=== PATIENT | male | born 2005 | race African-American/Black ===

== ENCOUNTER 2025-01-13 12:27 | Emergency (ER) | payer MEDICAID, SELFPAY ==
[2025-01-13 12:38] VITALS: BP 130/74; PULSE 70; O2SAT 100; BMI 24.1
--- NOTE | 2025-01-13 12:44 | ED_ITS ---
HPI - Psych General Chief Complaint: Psychiatric Symptoms Stated Complaint: SI Source: patient and EMS Mode of arrival: EMS Limitations: no limitations History of Present Illness ED Provider: KIKI Pop HPI Narrative: Chief Complaint: ?I feel like I might not live to next year.? History of Present Illness: Patient reports passive thoughts about not wanting to live through the next year. Yesterday she disclosed these feelings to a professor, who directed her to [facility]. She was evaluated by the [facility] crisis team the same day and medically cleared with instructions for follow-up. Today [facility] called to check on her and, although she reports no significant change, she was referred to the ED for further evaluation. She denies a specific plan or intent for self-harm. She describes rapid mood shifts?being happy one moment and feeling detached or ?dissociated? minutes later. Patient specifically describes that she could be in a happy mood, jumping around, and then within two or three minutes feels completely dissociated from what's going on. She denies prior psychiatric diagnosis (e.g., bipolar disorder, schizophrenia). She is unaware of any family history of psychiatric illness. She denies visual/auditory hallucinations and denies homicidal ideation except in self-defense.346 Related Data Home Medications ?Medication ?Instructions ?Recorded ?Confirmed No Known Home Meds 01/13/25 01/13/25 Allergies Allergy/AdvReac Type Severity Reaction Status Date / Time No Known Allergies Allergy Verified 01/13/25 12:41 Review of Systems 2 Review of Systems: Psychiatric: Positive for passive suicidal thoughts, mood lability, and episodes of dissociation. Negative for hallucinations and homicidal ideation. No other systems reviewed or discussed. Family History: Patient is unsure of family psychiatric history; no known concerns reported. Yes all other systems are reviewed and are negative [facility] Past Medical History Attestation statement: The following information was validated with the patient. Source: old records reviewed and nursing notes reviewed Social History Social History Advance Directives: No Advance Directives Information Provided: Yes Do you have a plan to hurt others: No Plan Physical Exam 2 Exam: Exam: Appearance: Alert.? Oriented X3.? No acute distress.? Head: Normocephalic, atraumatic, no step-offs or deformities Eyes: Pupils equal, round and reactive to light.? ENT: Pharynx normal.? Neck: Normal inspection.? Neck supple.? CVS: Normal heart rate and rhythm.? Pulses normal.? Respiratory: No respiratory distress.? Breath sounds normal.? Abdomen: Soft and nontender.? Skin: Skin warm and dry.? Normal skin color.? Normal skin turgor.? Extremities: No lower extremity edema.? No calf ttp. 5/5 strength to bilateral upper and lower extremities Back: No midline tenderness, no C-spine tenderness, full range of motion, no CVA tenderness bilaterally Neuro: Oriented X 3.? No motor deficit.? No sensory deficit. CN 2-12 intact Vital Signs: Vital Signs: Last Vital Signs Temp 98.0 F 01/14/25 06:25 Pulse 63 01/14/25 06:25 Resp 16 01/14/25 06:25 BP 108/58 L 01/14/25 06:25 Pulse Ox 100 01/14/25 06:25 O2 Del Method Room Air 01/14/25 06:25 BMI result Body Mass Index 24.1 vss Course Reevaluation(s) Reevaluation #1: CBC with leukopenia and no anemia. This is possibly baseline however, no labs to compare with. Chemistry no acute findings needing intervention. UA without infection. Urine toxicology positive for marijuana negative for ethanol. At this time patient to be placed into observation to allow more time to be seen by the care team. Time: 13:48 Reevaluation #2: Patient will continue in physician observation seen with the care team but they are awaiting collateral from the patient's school Time: 19:42 Reevaluation #3: Seen by crisis patient is clear for discharge. No SI at this time, this end the physician observation status 01/14/2025 09:00 Medical Decision Making Medical Decision Making MDM Narrative: Patient presents with passive suicidal ideation without plan or intent, mood lability, and episodes of dissociation. Requires medical clearance and psychiatric evaluation. Physical exam benign Problem #1: Passive suicidal ideation / mood lability Assessment: Patient endorses vague thoughts of not wanting to live but denies active plan or intent. No prior psychiatric history. Needs full psychiatric assessment once medically cleared. Plan: * Obtain basic lab work, urine analysis, drug screen, and ethanol level for medical clearance. * Crisis team to evaluate patient in ED once clearance obtained * Ensure safe environment while awaiting evaluation. Differential Diagnosis Differential Diagnoses: The differential diagnosis associated with the presentation includes Differential Diagnosis * Major depressive disorder * Adjustment disorder with depressed mood * Bipolar disorder (first episode) * Substance-induced mood disorder * Dissociative disorder * Personality disorder (e.g., borderline personality traits) * Psychotic disorder (prodromal phase) * Medical causes (e.g., thyroid dysfunction, neurologic disorder) * PTSD/trauma-related disorder Admission/Observation Consideration of admission/observation: Escalation of care including admission/observation considered (possible ) Consult Healthcare Provider Management of the patient was discussed with: Behavioral Health Provider Lab Data MDM Lab Attestation statement: I reviewed the patient's lab results. 01/13/25 13:10 01/13/25 13:10 Labs: Lab Results 01/13/25 01/13/25 Range/Units 13:10 13:21 WBC 3.6 L (4.8-10.8) X10*3/uL RBC 4.20 L (4.60-5.80) X10*6/uL Hgb 13.3 L (14.0-18.0) g/dl Hct 39.3 L (42.0-52.0) % MCV 93.6 (80.0-98.0) fL MCH 31.7 (27.0-33.0) pg MCHC 33.8 (31.0-36.0) g/dl RDW 12.8 (11.0-16.0) % Plt Count 173 (160-400) X10*3/uL MPV 10.0 (9.4-12.4) fL Immature Gran % (Auto) 0.3 (0.0-0.4) % Neut % (Auto) 45.4 (45-73) % Lymph % (Auto) 40.6 H (20-40) % [place] % (Auto) 8.8 (2-11) % Eos % (Auto) 4.1 H (0-4) % Baso % (Auto) 0.8 (0-2) % Lymph # (Auto) 1.5 (1.2-4.9) X10*3/uL [place] # (Auto) 0.3 (0.1-1.2) X10*3/uL Eos # (Auto) 0.2 (0.0-0.4) X10*3/uL Baso # (Auto) 0.0 (0.0-0.2) X10*3/uL Abs Immat Gran (auto) 0.01 (0.00-0.03) X10*3/uL Absolute Neuts (auto) 1.6 L (2.0-8.3) x10*3/uL Absolute Nucleated RBC 0.000 (0.0-0.012) X10*3/uL Nucleated RBC % (auto) 0.0 (0.0-0.2) /100WBC Sodium 141 (135-145) mmol/L Potassium 3.9 (3.3-5.1) mmol/L Chloride 106 (96-108) mmol/L Carbon Dioxide 29 (22-29) mmol/L Anion Gap 10 L (12-20) BUN 14 (9-16) mg/dL Creatinine 1.09 (0.5-1.4) mg/dL Estim Creat Clear Calc 93.2 Estimated GFR > 60 Random Glucose 82 (60-115) mg/dL Calcium 9.3 (8.4-10.2) mg/dL Magnesium 2.1 (1.6-2.6) mg/dL Total Bilirubin 0.5 (0.0-1.0) mg/dL AST 23 (5-37) U/L ALT 18 (0-40) U/L Alkaline Phosphatase 59 (39-117) U/L Total Protein 7.7 (6.5-8.0) g/dL Albumin 4.7 (3.5-5.0) g/dL Urine Color Yellow Urine Appearance Clear Urine pH 6.0 (5.0-9.0) Ur Specific [place] >= 1.030 H (1.005-1.025) Urine Protein Negative (Neg-Trace) mg/dL Urine Glucose (UA) Negative (Negative) mg/dL Urine Ketones Trace (Negative) mg/dL Urine Blood Negative (Negative) Urine Nitrite Negative (Negative) Ur Leukocyte Esterase Negative (Negative) Urine Opiates Screen Not Detected (Not Detect) Ur Buprenorphine Scrn Not Detected (Not Detect) ng/mL Ur Oxycodone Screen Not Detected (Not Detect) ng/mL Urine Methadone Screen Not Detected (Not Detect) ng/mL Urine Fentanyl Screen Not Detected (Not Detect) Ur Barbiturates Screen Not Detected (Not Detect) Ur Phencyclidine Scrn Not Detected (Not Detect) Ur Amphetamines Screen Not Detected (Not Detect) U Benzodiazepines Scrn Not Detected (Not Detect) Urine Cocaine Screen Not Detected (Not Detect) U Marijuana (THC) Screen POSITIVE H (Not Detect) Ethyl Alcohol < 10 mg/dL External Record Review n/a Chronic Conditions Denies Social Determinants Patient?s care significantly limited by Social Determinants of Health including: Other Social Determinant of Health Discharge Plan Discharge Clinical Impression: Depression, Suicidal ideation Prescriptions: No Action No Known Home Meds Interventions: [place]-Suicide Risk Severity Scale Last Done: 01/13/25 12:42 Print Language: Yoruba
[2025-01-13 13:00] VITALS: BP 118/70; PULSE 66; RESP 14; TEMP 36.3; O2SAT 100
[2025-01-13 13:16] LABS: MANUAL DIFF FLAG NO
[2025-01-13 13:17] LABS: Hematocrit 39.3 % (42.0-52.0); Hemoglobin 13.3 g/dl (14.0-18.0); Imm Gran Abs Auto 0.01 X10*3/uL (0.00-0.03); Imm Gran Pct Auto 0.3 % (0.0-0.4); Lymphocytes Absolute Auto 1.5 X10*3/uL (1.2-4.9); Mean Corpuscular HGB Conc 33.8 g/dl (31.0-36.0); Mean Corpuscular Hemoglobin 31.7 pg (27.0-33.0); Mean Corpuscular Volume 93.6 fL (80.0-98.0); NRBC Abs Auto 0.000 X10*3/uL (0.0-0.012); NRBC Pct Auto 0.0 /100WBC (0.0-0.2); Platelet Count 173 X10*3/uL (160-400); Red Blood Count 4.20 X10*6/uL (4.60-5.80); White Blood Count 3.6 X10*3/uL (4.8-10.8)
[2025-01-13 13:31] LABS: Appearance Urine Clear; Glucose Urine UA Negative (Negative); PH 6.0 (5.0-9.0); Specific Gravity - Urine >= 1.030 (1.005-1.025)
[2025-01-13 13:33] LABS: Alanine Aminotransferase 18 U/L (0-40); Albumin Level 4.7 g/dL (3.5-5.0); Alkaline Phosphatase 59 U/L (39-117); Anion Gap 10 (12-20); Aspartate Amino Transferase 23 U/L (5-37); Blood Urea Nitrogen 14 mg/dL (9-16); Calcium 9.3 mg/dL (8.4-10.2); Carbon Dioxide 29 mmol/L (22-29); Chloride 106 mmol/L (96-108); Creatinine Clr Calc Pharmacy 93.2; Estimated Glomerular Filt Rate > 60; Magnesium 2.1 mg/dL (1.6-2.6); Potassium 3.9 mmol/L (3.3-5.1); Sodium 141 mmol/L (135-145); Total Protein 7.7 g/dL (6.5-8.0)
[2025-01-13 13:42] LABS: Cannabinoid Screen Urine POSITIVE (Not Detect)
--- OUTSIDE RECORDS SUMMARY | 2025-01-13 20:14 | XMS_ITS | Clinical Summary ---
Author Organization [facility] Address [address] [id number] Care Team Providers Care Licensed Nurse Practitioner Name Role Phone Unavailable Primary Care Provider Unavailabl e Social History Tobacco Use Types Packs/Day Years Used Date Smoking Tobacco: Never Assessed Sex and Gender Information Value Date Recorded Sex Assigned at Not on file Legal Sex Male 1:44 PM EDT Gender Identity Not on file Sexual Orientation Not on file Plan of Treatment Health Maintenance Due Date Last Done Comments Hepatitis C Screening 2003 MMR (1 of 1 - Standard series) 02/14/2004 Varicella (1 of 2 - 13+ 2-do se series) 02/14/2016 HPV Vaccine (1 - Male 3-dose series) 2018 DTaP/Tdap/Td (1 - Tdap) 2021 Hep B (1 of 3 - 19+ 3-dose series) 2022 COVID-19 Vaccine (1 - 2024-2 6 season) 2024 Influenza (#1) 2024 Zoster (Shingrix) (1 of 2) 2053 Hep A Aged Out No longer eligi ble based on patient's age to complete this topic Hib Aged Out No longer eligi ble based on patient's age to complete this topic Meningococcal ACWY Aged Out No longer eligible based on patient's age to complete this topic Pneumococcal Aged Out No longer eligi ble based on patient's age to complete this topic Polio (IPV/OPV) Aged Out No longer el igible based on patient's age to complete this topic
--- OUTSIDE RECORDS SUMMARY | 2025-01-13 20:14 | XMS_ITS | Clinical Summary ---
Author Organization [facility] Address [address] [place] [address] Care Team Providers Care Deputy Commissioner Name Role Phone No, Pcp INGOT BUGGY OPERATOR Primary Care Provider Unavailabl e Allergies Active Allergy Reactions Criticality Noted Date Comments [place] Oil 10/22/2016 Medications No known medications Immunizations Immunization Administration Dates Next Due Fluarix Quadrivalent Prefilled Syringe 7 Social History Tobacco Use Types Packs/Day Years Used Date Smoking Tobacco: Never Smokeless Tobacco: Never Sex and Gender Information Value Date Recorded Sex Assigned at Not on file Legal Sex Male 9:18 PM EDT Gender Identity Not on file Sexual Orientation Not on file Last Filed Vital Signs Vital Sign Reading Time Taken Comments Blood Pressure 98/56 10/16/2018 3:13 PM EDT Pulse 68 10/16/2018 3:13 PM EDT Temperature 36.1 C (97 F) 10/16/2018 3:13 PM EDT Respiratory Rate 18 10/16/2018 3:13 PM EDT Oxygen Saturation 99% 10/16/2018 3:13 PM EDT Inhaled Oxygen Concentration - - Weight 65.9 kg (145 lb 3.2 oz) 10/16/2018 3:13 P M EDT Height 169 cm (5' 6.54 ) 10/16/2018 3:13 PM EDT Body Mass Index 23.06 10/16/2018 3:13 PM EDT Plan of Treatment Not on file Medical Devices Not on file Care Teams Deputy Commissioner Relationship Specialty Start Date End Date No, Pcp, INGOT BUGGY OPERATOR N/A Do not use PCP - General 10/22/16
--- OUTSIDE RECORDS SUMMARY | 2025-01-13 20:15 | XMS_ITS | Clinical Summary ---
Author Organization [facility] Address [address] [place] [address] Care Team Providers Care Online Content Editor Name Role Phone [facility] Primary Care Provider Allergies Active Allergy Reactions Criticality Noted Date Comments Chocolate Flavor Hives 05/26/2020 [place] Oil Rash 10/22/2016 Medications acetaminophen (TYLENOL) 325 mg tablet Take 2 tablets (650 mg total) by mouth every 4 hours as needed for pain. 30 tablet 1 Active ibuprofen (MOTRIN) 600 mg tablet Take 1 tablet (600 mg total) by mouth every 6 hours as needed for pain. 28 tablet 1 Active oxyCODONE IR (ROXICODONE) 5 mg tablet Take 1 tablet (5 mg total) by mouth every 6 hours as needed for breakthrough pain. 10 tablet 1 Active Active Problems Problem Noted Date Diagnosed Date Closed fracture of right distal radius 1 Overview (05/30/2020): Added automatically from request for surgery [id number] Social History Tobacco Use Types Packs/Day Years Used Date Smoking Tobacco: Never Assessed Sex and Gender Information Value Date Recorded Sex Assigned at Not on file Legal Sex Male 1:17 PM EDT Gender Identity Not on file Sexual Orientation Not on file Last Filed Vital Signs Vital Sign Reading Time Taken Comments Blood Pressure 140/86 05/26/2020 9:24 PM EDT Pulse 57 05/26/2020 9:24 PM EDT Temperature 37 C (98.6 F) 05/26/2020 9:24 PM EDT Respiratory Rate 16 05/26/2020 9:24 PM EDT Oxygen Saturation 100% 05/26/2020 9:24 PM EDT Inhaled Oxygen Concentration - - Weight 70.3 kg (155 lb) 05/26/2020 1:34 PM EDT Height - - Body Mass Index - - Plan of Treatment Health Maintenance Due Date Last Done Comments HIV Screening 2003 1 Week [facility] 2003 1 Month [facility] 2003 2 Month [facility] 2003 4 Month WC 2003 6 Month WC 2003 9 Month WC 2003 12 Month WC 02/14/2004 15 Month WC 05/02/2004 18 Month WC 07/31/2004 24 Month WC 01/27/2005 30 Month [facility] 06/02/2005 3 to 19 Year [facility] 2006 Well Child Check 2006 Alcohol/Substance Use Screening 03/02/2024 COVID-19 Vaccine (3 - 2024-2 6 season) 2024 12/21/2020, 11/16/2020 Influenza Vaccine (#1) 2024 , 11/15/2019, 10/22/2016, Additional history exists DTaP,Tdap,and Td Vaccines (6 - Td or Tdap) 10/29/2025 10/30/2015, 12/03/2007, 07/17/2006, Additional history exists MMR Vaccines Completed 04/09/2006, 10/03/2005 Varicella Vaccines Completed 04/09/2006, 10/03/2005 Hepatitis B Vaccines Completed 07/17/2006, 04/09/2006, 10/03/2005 Pneumococcal Vaccine: Pediat sotero (0-5 Years) and At-Risk Patients (6-50 Years) Completed 12/03/2007, 10/03/2005 HPV Vaccines Completed 12/27/2019, 10/30/2015 Meningococcal Vaccine Completed 12/27/2019, 016 Insurance [employer] [facility] Care Teams Online Content Editor Relationship Specialty Start Date End Date [facility] [address] [place] [id number] PCP - General Family Medicine 05/26/20
[2025-01-14 06:25] VITALS: BP 108/58; PULSE 63; RESP 16; TEMP 36.7; O2SAT 100
--- NOTE | 2025-01-14 07:52 | PC.NURSE ---
Assumed care of patient at 0645, patient appears to be in no apparent distress this am, resting in bed, respirations even and unlabored. Continue plan of care for follow up in am
--- NOTE | 2025-01-14 08:17 | PHA.MEDREC ---
Pharmacy Consult ? Medication Reconciliation Pharmacy has reviewed the medication reconciliation done by nursing.
[2025-01-14 09:19] VITALS: BP 108/58; PULSE 63; RESP 16; TEMP 36.7; O2SAT 100
== END 2025-01-14 09:20 | disposition home or self-care (01) ==
PROVIDERS: Physician Assistant; Emergency Provider Emergency Medicine
DX: R45.851 Suicidal ideations (principal); F32.A Depression, unspecified; D72.819 Decreased white blood cell count, unspecified; Z53.21 Procedure and treatment not carried out due to patient leaving prior to being seen by health care provider
CPT/HCPCS: 36415; 80053; 80307; 81003; 83735; 85025; 99281; 99283; 99285; S9485